=== PATIENT | female | born 1985 | race American Indian/Alaskan Native ===

== ENCOUNTER 2018-09-12 16:48 | Emergency (ER) | payer MEDICAID ==
[2018-09-12 16:52] VITALS: BMI 35.5
[2018-09-12 16:57] VITALS: BP 136/91; PULSE 99; RESP 18; TEMP 97.9; O2SAT 98
--- NOTE | 2018-09-12 18:03 | ED PDOC ---
Arrival/HPI - General Chief Complaint: Abdominal Pain Time Seen by Provider: 09/12/18 17:18 Historian: Patient - History of Present Illness Narrative History of Present Illness (Text): 09/12/18 18:03 33 year old female who is 38 weeks presents to emergency department for evaluation due to the fact she is experiencing abdominal cramping. Patient states she is experiencing less movement than usual. Patient denies any fevers, chills, headache, dizziness, chest pain, shortness of breath, cough, abdominal pain, nausea, vomiting, diarrhea, back pain, neck pain, or any other complaints. Time/Duration: Other (today) Symptom Onset: Gradual Symptom Course: Unchanged Activities at Onset: Light Context: Home Past Medical History - Provider Review Nursing Documentation Reviewed: Yes SUE Report Viewed: No - Travel History Have you recently traveled outside [place] w/in the past 3 mons?: No - Reproductive Currently : Yes - Psychiatric Hx Substance Use: No - Anesthesia Hx Anesthesia Reactions: No Hx Malignant Hyperthermia: No Family/Social History - Physician Review Nursing Documentation Reviewed: Yes Family/Social History: Unknown Family HX Smoking Status: Never Smoked Hx Alcohol Use: Yes Frequency of alcohol use: Socially Hx Substance Use: No Review of Systems - Physician Review All systems were reviewed & negative as marked: Yes - Review of Systems Respiratory: absent: SOB, Cough, Wheezing Cardiovascular: absent: Chest Pain Gastrointestinal: Abdominal Pain (cramping). absent: Diarrhea, Nausea Genitourinary Female: absent: Urine Output Changes Musculoskeletal: absent: Back Pain, Neck Pain Skin: absent: Rash Neurological: absent: Headache, Dizziness Physical Exam Vital Signs Reviewed: Yes Vital Signs Temp Pulse Resp BP Pulse Ox 09/12/18 16:49 97.9 F 99 H 18 136/91 H 98 Temperature: Afebrile Blood Pressure: Normal Pulse: Tachycardic Respiratory Rate: Normal Appearance: Positive for: Well-Appearing, Non-Toxic, Comfortable Mental Status: Positive for: Alert and Oriented X 3 - Systems Exam Abdomen: Present: Other (Gravid) Medical Decision Making ED Course and Treatment: 09/12/18 18:00 Impression: 33 year old female who is 38 weeks presents to emergency department for abdominal cramping today. Plan: -- Reassess and disposition Prior Visits: Notes and results from previous visits were reviewed. Progress Notes: 09/12/18 18:00 Patient does not want medical care here and requests to go to [facility] [place]. Patient will sign AMA forms and fully understands the risks vs benefits of leaving AMA. She understands she may return to the ED should she desire medical stabilization and ambulance transfer. AMA papers signed. - Scribe Statement The provider has reviewed the documentation as recorded by the Scribe Gavino Anderson All medical record entries made by the Scribe were at my direction and personally dictated by me. I have reviewed the chart and agree that the record accurately reflects my personal performance of the history, physical exam, medical decision making, and the department course for this patient. I have also personally directed, reviewed, and agree with the discharge instructions and disposition. Disposition/Present on Arrival - Present on Arrival Any Indicators Present on Arrival: No History of DVT/PE: No History of Uncontrolled Diabetes: No Urinary Catheter: No History of Decub. Ulcer: No History Surgical Site Infection Following: None - Disposition Have Diagnosis and Disposition been Completed?: Yes Diagnosis: , Abdominal pain, Decreased movement Disposition: AGAINST MEDICAL ADVICE Disposition Time: 11:32 Condition: STABLE Forms: [facility] (Urdu)
== END 2018-09-12 18:00 | disposition left against medical advice (07) ==
LOC: ED 16:48
DX: O26.893 Other specified pregnancy related conditions, third trimester (principal); R10.9 Unspecified abdominal pain; O36.8130 Decreased fetal movements, third trimester, not applicable or unspecified; Z3A.38 38 weeks gestation of pregnancy